=== PATIENT | female | born 1955 | race African-American/Black ===

== ENCOUNTER → 2017-07-14 08:25 | Outpatient (CLI) | payer MEDICARE ==
[2015-11-14 06:08] VITALS: BMI 40.8
[~2017-07-14 08:25] MED LIST: ADVAIR 250/501 DISK INH; BENADRYL50 MG PO; BENICAR HCT 40-1 TAB PO; BENICAR40 MG PO; CATAPRES0.1 MG PO; CELEXA20 MG PO; COLACE100 MG PO; COUMADIN5 MG PO; DEMEROL50 MG PO; DEPADE50 MG PO; DULCOLAX10 MG/SUPP RC; ELIQUIS2.5 MG PO; ESTRACE1 MG PO; FLOVENT HFA 410.6 GM INH; GAS-X80 MG PO; HYDROCHLOROTH12.5 M1 PO; HYDROCODONE-APA1 TAB PO; IBUPROFEN600 MG PO; IPRAT-ALBUT 0.5-3 ML NEB; LEXAPRO20 MG PO; LOPRESSOR25 MG PO; MIRALAX17 GM PO; MULTIPLE VITAMI1 TA1 PO; NITROSTAT0.4 MG SL; NORVASC10 MG PO; NORVASC5 MG PO; OMEPRAZOLE40 MG PO; PEPCID20 MG PO; PRAVACHOL40 MG PO; PRILOSEC20 MG PO; PROAIR HFA8.5 GM INH; PROTONIX40 MG PO; SENOKOT-S TABLE1 TAB PO; SPIRIVA18 MCG INH; TENORMIN25 MG PO; ZOFRAN4 MG PO
== END | disposition home or self-care (01) ==
LOC: D.NM 07-07 09:15
DX: M25.562 Pain in left knee (principal)

== ENCOUNTER → 2017-09-10 15:32 | Outpatient (CLI) | payer MEDICARE ==
[2015-11-14 06:08] VITALS: BMI 40.8
[~2017-09-10 15:32] MED LIST changes: +TORADOL10 MG PO
[2017-09-10 16:08] LABS: BASOPHILS 0.2 % (0-2); EOSINOPHILS 1.2 % (0-7); HEMATOCRIT 37.5 % (36.0-48.0); HEMOGLOBIN 13.3 g/dL (12-16); IMMATURE GRANULOCYTES 0.3 % (0-5); LYMPHOCYTES 34.3 % (15-50); MCH 30.2 pg (26.0-34.0); MCHC 35.5 g/dL (31.0-37.0); MCV 85.2 fL (80.0-100.0); MEAN PLATELET VOLUME 10.5 fL (7.4-10.4); PLATELET COUNT 303 10x3/uL (130-400); WBC 11.3 10x3/uL (4.8-10.8)
[2017-09-10 18:48] LABS: ERYTHROCYTE SEDIMENTATION RATE 22 mm/hr (0-30)
== END | disposition home or self-care (01) ==
LOC: D.LABREF 15:32
PROVIDERS: Orthopaedic Surgery
DX: M25.562 Pain in left knee (principal)

== ENCOUNTER 2017-09-15 13:24 | Emergency (ER) | payer MEDICARE ==
[~2017-09-15] VITALS: Ht 160 cm; Wt 90.0 kg
[~2017-09-15 13:24] MED LIST changes: -TORADOL10 MG PO
[2017-09-15 13:29] VITALS: Ht 160 cm; Wt 90.0 kg
[2017-09-15] MEDS ORDERED: TORADOL10 MG PO (14:55)
[2017-09-15 15:36] VITALS: BP 174/82
== END 2017-09-15 15:46 | disposition home or self-care (01) ==
LOC: D.ER 13:24
DX: K64.5 Perianal venous thrombosis (principal); I10 Essential (primary) hypertension; J44.9 Chronic obstructive pulmonary disease, unspecified; K21.9 Gastro-esophageal reflux disease without esophagitis; F17.200 Nicotine dependence, unspecified, uncomplicated

== ENCOUNTER → 2017-09-16 11:12 | Outpatient (CLI) | payer MEDICARE ==
[2017-09-15 13:29] VITALS: BMI 35.1
[~2017-09-16 11:12] MED LIST changes: +TORADOL10 MG PO
[2017-09-16 11:40] LABS: BASOPHILS 0.2 % (0-2); EOSINOPHILS 1.2 % (0-7); IMMATURE GRANULOCYTES 0.3 % (0-5); LYMPHOCYTES 31.2 % (15-50); MCH 30.1 pg (26.0-34.0); MCHC 35.1 g/dL (31.0-37.0); MCV 85.6 fL (80.0-100.0); MEAN PLATELET VOLUME 9.6 fL (7.4-10.4); MONOCYTES 6.1 % (2-11); PLATELET COUNT 301 10x3/uL (130-400); RBC 4.32 10x6/uL (4.00-5.40); WBC 11.3 10x3/uL (4.8-10.8)
[2017-09-16 12:03] LABS: C-REACTIVE PROTEIN 1.2 mg/dL (0.0-0.9); CARBON DIOXIDE 28.1 mmol/L (21.0-32.0); CREATININE - SERUM 0.9 mg/dL (0.6-1.3); POTASSIUM - SERUM 4.1 mmol/L (3.5-5.1)
[2017-09-16 12:45] LABS: ERYTHROCYTE SEDIMENTATION RATE 28 mm/hr (0-30)
== END | disposition home or self-care (01) ==
LOC: D.LAB 11:12
PROVIDERS: Orthopaedic Surgery
DX: M25.562 Pain in left knee (principal)

== ENCOUNTER → 2017-09-18 08:51 | Outpatient (CLI) | payer MEDICARE ==
[2017-09-15 13:29] VITALS: BMI 35.1
[2017-09-18 15:57] LABS: PROTEIN - BODY FLUID 1.5 G/DL
[2017-09-18 18:44] LABS: MESOTHELIALS BF 8 %
[2017-09-18 18:46] LABS: MACROPHAGES BF 25 %; NEUT - BF 29 %
== END | disposition home or self-care (01) ==
LOC: D.RAD 08:51
PROVIDERS: Orthopaedic Surgery
DX: T84.019A Broken internal joint prosthesis, unspecified site, initial encounter (principal)

== ENCOUNTER → 2017-09-18 14:40 | Outpatient (CLI) | payer MEDICARE ==
[2017-09-15 13:29] VITALS: BMI 35.1
== END | disposition home or self-care (01) ==
LOC: D.LABREF 14:40
DX: T84.019A Broken internal joint prosthesis, unspecified site, initial encounter (principal)

== ENCOUNTER → 2017-11-14 14:55 | Outpatient (CLI) | payer MEDICARE ==
[2017-09-15 13:29] VITALS: BMI 35.1
== END | disposition home or self-care (01) ==
LOC: D.LABREF 14:55
DX: M25.562 Pain in left knee (principal); Z11.8 Encounter for screening for other infectious and parasitic diseases